=== PATIENT | female | born 1975 | race Caucasian/White ===

== ENCOUNTER 2016-05-06 13:43 | Emergency (ER) | payer MEDICARE ==
[2016-05-06 15:13] VITALS: TEMP 98.5; O2SAT 98
--- NOTE | 2016-05-06 16:26 | RAD ---
EXAM DESCRIPTION: Abdomen Series CLINICAL HISTORY: left abd pain post appendectomy and total hysterectomy. Nausea, vomiting, history of pneumonia COMPARISON: None Available. TECHNIQUE: PA chest with supine and upright views of the abdomen] FINDINGS: The lungs are clear. The heart is normal size. There is an unremarkable bowel gas pattern. There is no mass or calculus. IMPRESSION: Normal acute abdomen series Electronically signed by: Sam Gonzalez MD 05/06/2016 4:25 PM [employer]
[2016-05-06] MEDS ORDERED: LACTATED RINGERS 1,000 ML IVS ONE (16:57)
[2016-05-06] MEDS ORDERED: ONDANSETRON INJ 4 MG/2 ML VIAL IV ONE (17:17)
[2016-05-06] MEDS ORDERED: ONDANSETRON INJ 4 MG/2 ML VIAL ONE (17:19)
--- NOTE | 2016-05-06 18:03 | CT ---
PROCEDURE: Abdomen/Pelvis w/Contrast HISTORY: left abd pain with n/v for 10 days Indication: Same as above Comparison: None . Technique: CT of the abdomen and pelvis was done with intravenous contrast. Images were obtained from the lung base to the level of the pubic symphysis in axial plane, followed by orthogonal sagittal and coronal reconstruction. Oral contrast was not given for the study. The patient was injected with radiographic contrast intravenously, without any documented immediate adverse reactions. FINDINGS: Images through the lung bases do not show any focal infiltrates or pleural effusions. The liver, gallbladder, pancreas, spleen and the bilateral adrenal glands appear unremarkable. The bilateral kidneys enhance with contrast in a normal fashion. The urinary bladder is unremarkable . The bilateral ureters and the bilateral periureteral soft tissues and fat planes are unremarkable. The small bowel appears unremarkable, without any evidence of small bowel obstruction or bowel wall thickening. There is presence of mild constipation. The cecum is low-lying in the right side of the pelvis. There is no visualization of a normal or an inflamed appendix. However there is no pericecal inflammatory change. The ileocecal junction appears unremarkable There is no CT evidence of acute colonic diverticulitis or colitis or large bowel obstruction. The splenic and portal veins are of normal caliber, without any filling defects. There is no pathological lymphadenopathy in the retroperitoneum or in the pelvic region. There is no evidence of free fluid or free air in the abdomen or the pelvic region. There is no clinically significant abdominal aortic aneurysm. There is no clinically significant inguinal or ventral hernia. The visualized lumbar spine is unremarkable . The paravertebral soft tissues are unremarkable. The remainder of the pelvic structures are unremarkable. IMPRESSION: There is presence of mild constipation. The cecum is low-lying in the right side of the pelvis. There is no visualization of a normal or an inflamed appendix. However there is no pericecal inflammatory change. The ileocecal junction appears unremarkable. Location of Interpretation: Teleradiology Electronically signed by: Emre Lira MD 05/06/2016 6:02 PM [employer]
[2016-05-06] MEDS ORDERED: MAGNESIUM HYDROXIDE 30 ML UD PO ONE (18:22)
--- NOTE | 2016-05-06 18:25 | ED.PDOC ---
History of Present Illness - General Chief Complaint: Abdominal Pain Stated Complaint: LLQ abdominal pain Time Seen by Provider: 05/06/16 15:48 Source: patient Exam Limitations: no limitations - History of Present Illness Initial Comments: the patient is a 41-year-old female presenting to the emergency room secondary to abdominal pain primarily on the left. When she points to the side that hurts the worse it is in the left lower quadrant however when I palpate it is a little higher towards the mid left abdomen. No palpable masses. She has had several episodes of vomiting. She has had some issues with constipation. She thinks she may have had some low-grade fevers. No blood in the stool. No syncope or near syncope. Eating food does seem to make the pain worse. Having a bowel movement did seem to help somewhat but then the pain returned. Timing/Duration: 1 week Severity: moderate Improving Factors: nothing Worsening Factors: eating Associated Symptoms: loss of appetite, malaise Allergies/Adverse Reactions: Allergies NO KNOWN ALLERGY Allergy (Verified 05/06/16 15:13) Review of Systems - Review of Systems Constitutional: States: malaise EENTM: States: no symptoms reported Respiratory: States: no symptoms reported Cardiology: States: no symptoms reported Gastrointestinal/Abdominal: States: see HPI Genitourinary: States: no symptoms reported Musculoskeletal: States: back pain Skin: States: no symptoms reported Neurological: States: no symptoms reported Endocrine: States: no symptoms reported All other Systems: No Change from Baseline Past Medical History (General) - Patient Medical History Hx Diabetes: No Hx Gastroesophageal Reflux: Yes Surgical History: appendectomy, Hysterectomy - Vaccination History Hx Influenza Vaccination: No - Social History Hx Tobacco Use: Yes - Female History Patient is a Female of Child Bearing Age (10 -59 yrs old): No Family Medical History - Family History Mother Family History: Unknown Living Status: Unknown Physical Exam - Physical Exam General Appearance: Alert, Comfortable, No apparent distress Eye Exam: bilateral normal Ears, Nose, Throat: normal ENT inspection, normal pharynx Neck: non-tender, full range of motion, supple Respiratory: chest non-tender, lungs clear, normal breath sounds, no respiratory distress, no accessory muscle use Cardiovascular/Chest: normal peripheral pulses, regular rate, rhythm, no edema Peripheral Pulses: radial,right: 2+, radial,left: 2+, dorsalis pedis,right: 2+, dorsalis pedis,left: 2+ Gastrointestinal/Abdominal: soft, other - no palpable masses but she does have some mild voluntary guarding on the left side. Rectal Exam: deferred Back Exam: normal inspection, no CVA tenderness - mild on the left Extremity: normal range of motion, non-tender, normal inspection, no pedal edema , normal capillary refill Neurologic: no motor/sensory deficits, alert, normal mood/affect, oriented x 3 Skin Exam: normal color Comments: Vital Signs - 24 hr 05/06/16 15:08 Temperature 98.5 F Pulse Rate [ 122 H Left Brachial] Respiratory 20 Rate Blood Pressure 143/94 [Left Arm] O2 Sat by Pulse 98 Oximetry Progress - Progress Progress: 05/06/16 18:25 the patient is a 41-year-old female presenting due to left-sided abdominal pain for the last 10 days. Laboratory work was reassuring. CT scan of the abdomen and pelvis showed no acute pathology other than constipation. The patient was given a dose of milk of magnesia here and needs to take one dose of oral [place] oil when she gets home. she also needs to take Pepcid 20 mg daily for the next 2 weeks. She needs to keep well-hydrated. She did have some mild dehydration here and was given a liter of IV fluids. ER warnings were given for any worsening. She needs to follow up with her primary care doctor towards the end of this week or early next week. - Results/Orders Results/Orders: CT scan of the abdomen and pelvis shows mild constipation but no other evidence of acute pathology Laboratory Results - last 24 hr 05/06/16 05/06/16 05/06/16 14:00 15:25 15:49 WBC 9.6 RBC 4.98 Hgb 14.8 Hct 43.8 MCV 88.0 MCH 29.7 MCHC 33.7 RDW 13.9 Plt Count 182 MPV 9.8 Absolute Neuts (auto) 6.50 Absolute Lymphs (auto) 2.50 Absolute Monos (auto) 0.50 Absolute Eos (auto) 0.00 Absolute Basos (auto) 0.10 Neutrophils % 67.6 Lymphocytes % 26.1 Monocytes % 5.5 Eosinophils % 0.3 L Basophils % 0.5 Sodium 140 Potassium 3.7 Chloride 105 Carbon Dioxide 24 Anion Gap 14.7 BUN 18 Creatinine 0.42 L BUN/Creatinine Ratio 42.9 H Random Glucose 87 Serum Osmolality 280.7 Calcium 9.8 Total Bilirubin 0.5 AST 22 ALT 31 Alkaline Phosphatase 62 Creatine Kinase 33 CK-MB (CK-2) 0.7 CK-MB (CK-2) % Not Reportable Troponin I < 0.02 Serum Total Protein 7.9 Albumin 4.9 Globulin 3.0 Albumin/Globulin Ratio 1.6 Amylase 36 Lipase 26 Urine Color Yellow Urine Appearance Clear Urine pH 5.5 Ur Specific [place] 1.025 Urine Protein Negative Urine Glucose (UA) Negative Urine Ketones >=160 Urine Blood Trace-lysed H Urine Nitrite Negative Urine Bilirubin Small H Urine Urobilinogen 0.2 Ur Leukocyte Esterase Negative Urine RBC 0 Urine WBC 0-1 Ur Epithelial Cells 0 Urine Bacteria Rare Urine HCG, Qual Negative Departure - Departure Clinical Impression: Constipation Qualifiers: Constipation type: unspecified constipation type Qualifier Code: (K59.00) Constipation, unspecified Disposition: Discharge to Home or Self Care Condition: Fair Departure Forms: ED Discharge - Pt. Copy, Patient Portal Self Enrollment Instructions: DI for Abdominal Pain-Adult Diet: other - high fiber diet. Increase fluid intake. Activity: increase activity as tolerated Referrals: Camila Fallon NP [Primary Care Provider] - 1-2 Weeks Additional Instructions: the patient is a 41-year-old female presenting due to left-sided abdominal pain for the last 10 days. Laboratory work was reassuring. CT scan of the abdomen and pelvis showed no acute pathology other than constipation. The patient was given a dose of milk of magnesia here and needs to take one dose of oral [place] oil when she gets home. she also needs to take Pepcid 20 mg daily for the next 2 weeks. She needs to keep well-hydrated. She did have some mild dehydration here and was given a liter of IV fluids. ER warnings were given for any worsening. She needs to follow up with her primary care doctor towards the end of this week or early next week.
[2016-05-06 19:09] VITALS: BP 139/89
== END 2016-05-06 19:00 | disposition home or self-care (01) ==
LOC: ER 13:43
DX: K59.00 Constipation, unspecified (principal); K21.9 Gastro-esophageal reflux disease without esophagitis
CPT/HCPCS: 36415; 74020; 74177; 80053; 81001; 81025; 82150; 82550; 82553; 83690; 84484; 85025; J2405; J7120

== ENCOUNTER 2016-12-13 12:57 | Emergency (ER) | payer MEDICARE ==
[2016-12-13 14:27] VITALS: TEMP 98.2
--- NOTE | 2016-12-13 14:49 | ED.PDOC ---
History of Present Illness - General Chief Complaint: Respiratory Problem Stated Complaint: shortness of breath,cough,weakness Time Seen by Provider: 12/13/16 14:22 Source: patient Additional Information: Lalitha Mixon 41 y/o female stated that she had non productive cough for the last 12 weeks and was seen by her primary md was given antibiotic injection and steroid oral but stating not any better continue to cough.No fever nausea or vomiting.Stated several family members sick with same symptoms. - History of Present Illness Timing/Duration: other - 01/07 weeks Cough Quality/Degree: dry cough Possible Cause: no prior episodes Improving Factors: nothing Worsening Factors: nothing Associated Symptoms: cough Allergies/Adverse Reactions: Allergies Codeine Allergy (Verified 12/13/16 14:27) Penicillins Allergy (Verified 12/13/16 14:27) Home Medications: Ambulatory Orders Albuterol Inhaler [Ventolin Hfa Inhaler] 1 puff INH DAILY 05/06/16 Lorazepam [Ativan] 1 mg PO BEDTIME 05/06/16 Pantoprazole Tablet [Protonix] 40 mg PO BID 05/06/16 Benzonatate Perles [Tessalon Perles] 200 mg PO TID #30 cap 12/13/16 Cefuroxime Axetil [Ceftin] 250 mg PO BID #14 tab 12/13/16 Review of Systems - Review of Systems Constitutional: States: no symptoms reported EENTM: States: no symptoms reported Respiratory: States: see HPI Cardiology: States: no symptoms reported Gastrointestinal/Abdominal: States: no symptoms reported Past Medical History (General) - Patient Medical History Hx Asthma: Yes Hx Congestive Heart Failure: No Hx Diabetes: No Hx Gastroesophageal Reflux: Yes Surgical History: appendectomy, Hysterectomy - Vaccination History Hx Influenza Vaccination: No Hx Pneumococcal Vaccination: No - Social History Hx Tobacco Use: Yes - Female History Patient is a Female of Child Bearing Age (10 -59 yrs old): No Family Medical History - Family History Mother Family History: Unknown Living Status: Unknown Hx Family Cancer: Yes - breast -relatives Physical Exam - Physical Exam General Appearance: Alert, No apparent distress Eye Exam: bilateral normal ENT Exam: normal ENT inspection, hearing grossly normal, pharynx normal Neck: non-tender, full range of motion, supple Respiratory: chest non-tender, no respiratory distress, other - coarse breath sounds Cardiovascular/Chest: normal peripheral pulses, regular rate, rhythm Gastrointestinal/Abdominal: non tender, soft Extremity: no pedal edema, no calf tenderness Neurologic: alert, oriented x 3 Progress - Progress Progress: 12/13/16 15:58 Vital Signs - 8 hr 12/13/16 12/13/16 12/13/16 14:23 14:30 15:01 Temperature 98.2 F Pulse Rate 81 Pulse Rate [ 98 H Right Brachial] Respiratory 24 24 18 Rate Blood Pressure 152/87 [Right Arm] O2 Sat by Pulse 94 L 96 Oximetry - Results/Orders Results/Orders: Laboratory Tests 12/13/16 15:06 WBC 13.7 H RBC 4.66 Hgb 13.9 Hct 42.2 MCV 90.6 MCH 29.9 MCHC 33.0 RDW 14.1 Plt Count 220 MPV 8.8 Absolute Neuts (auto) 9.70 H Absolute Lymphs (auto) 3.10 Absolute Monos (auto) 0.70 Absolute Eos (auto) 0.00 Absolute Basos (auto) 0.30 H Neutrophils % 70.4 Lymphocytes % 22.4 Monocytes % 5.1 Eosinophils % 0.1 L Basophils % 2.0 - EKG/XRAY/CT XRAY: chest - no acute abnormalities Departure - Departure Clinical Impression: Acute bronchitis Qualifiers: Bronchitis organism: unspecified organism Qualified Code(s): J20.9 - Acute bronchitis, unspecified Time of Disposition: 16:03 Disposition: Discharge to Home or Self Care Condition: Good Departure Forms: ED Discharge - Pt. Copy, Patient Portal Self Enrollment Instructions: DI for Acute Bronchitis, Acute Bronchitis, Serious Ways to Stop Smoking, All Forms of Smoking Are Bad for You Referrals: Felipe Nicole MD [Primary Care Provider] - 1-2 Weeks Prescriptions: Benzonatate Perles [Tessalon Perles] 200 mg PO TID #30 cap Cefuroxime Axetil [Ceftin] 250 mg PO BID #14 tab Home Medications: Ambulatory Orders Albuterol Inhaler [Ventolin Hfa Inhaler] 1 puff INH DAILY 05/06/16 Lorazepam [Ativan] 1 mg PO BEDTIME 05/06/16 Pantoprazole Tablet [Protonix] 40 mg PO BID 05/06/16 Benzonatate Perles [Tessalon Perles] 200 mg PO TID #30 cap 12/13/16 Cefuroxime Axetil [Ceftin] 250 mg PO BID #14 tab 12/13/16
[2016-12-13] MEDS ORDERED: BENZONATATE PERLES 100 MG CAP PO ONE (14:50)
[2016-12-13] MEDS ORDERED: diphenhydrAMINE HCL 25 MG CAP PO ONE (14:50)
[2016-12-13] MEDS ORDERED: IPRATROPIUM/ALBUTEROL 3 ML VIAL NEB ONE (15:00)
--- NOTE | 2016-12-13 15:24 | RAD ---
Examination: XR CHEST 2 VIEWS dated 12/13/2016 2:49 PM CDT History: cough Comparison: None Technique: Frontal and lateral views of the chest Findings: The lungs are clear bilaterally. No pneumothorax or pleural effusion. The cardiomediastinal silhouette is within normal limits. Impression: No acute disease. Electronically signed by: Nicholas Butt MD 12/13/2016 3:23 PM CDT
[2016-12-13 16:23] VITALS: BP 137/96; O2SAT 94
== END 2016-12-13 16:18 | disposition home or self-care (01) ==
LOC: ER 12:57
DX: J20.9 Acute bronchitis, unspecified (principal); K21.9 Gastro-esophageal reflux disease without esophagitis; Z87.891 Personal history of nicotine dependence; Z88.6 Allergy status to analgesic agent; Z88.0 Allergy status to penicillin
CPT/HCPCS: 36415; 71020; 85025; 94640; J7620; Q0163

== ENCOUNTER → 2016-12-14 | Outpatient (CLI) | payer MEDICARE ==
--- NOTE | 2016-12-14 11:20 | CT ---
EXAM DESCRIPTION: Abdomen/Pelvis w/wo Contrast CLINICAL HISTORY: 41 years,Female,ABDOMINAL PAIN, LLQ COMPARISON: None TECHNIQUE: Multiple axial tomographic images were obtained of the abdomen and pelvis with and without IV contrast and oral contrast. Then reconstructed in sagittal and coronal planes. This exam was performed using radiation doses that are As Low As Reasonably Achievable (ALARA). FINDINGS: The kidneys are unremarkable The adrenal glands are unremarkable. The spleen is unremarkable. The liver demonstrates a small low-density area at the falciform ligament measuring about 1.8 cm. Most likely focal fatty infiltration.. The pancrease is unremarkable. The gallbladder is unremarkable. The included bowel is unremarkable. Moderate stool in the right colon and transverse colon. The appendix not seen present be surgically absent. There is no free air, free fluid, masses, or significant adenopathy. Surrounding soft tissues and bony elements unremarkable. Uterus and ovaries not seen present be surgically absent and or atrophic IMPRESSION: Could be a slight degree constipation otherwise unremarkable CT of the abdomen and pelvis Electronically signed by: Sam Guevara MD 12/14/2016 11:19 AM CDT
== END | disposition home or self-care (01) ==
LOC: CT 07:48
PROVIDERS: ATTEND General Practice
DX: R10.32 Left lower quadrant pain (principal)

== ENCOUNTER 2019-03-22 05:21 | Day surgery (SDC) | payer MEDICARE ==
[2019-03-22] MEDS ORDERED: LACTATED RINGERS 1,000 ML ONE (06:54)
[2019-03-22] MEDS ORDERED: LACTATED RINGERS 1,000 ML IVS ONE (07:55)
[2019-03-22 09:03] VITALS: O2SAT 100
--- NOTE | 2019-03-22 09:25 | OP ---
DATE OF PROCEDURE: 03/22/19 PREOPERATIVE DIAGNOSIS: 1. Hematochezia. 2. Change in bowel habits. POSTOPERATIVE DIAGNOSIS: 1. Internal hemorrhoids. PROCEDURE: 1. Colonoscopy. SURGEON: Mario Alberto Bob MD. COMPLICATIONS: None apparent. BLOOD LOSS: None. MEDICATIONS: Monitored anesthesia care. DESCRIPTION OF PROCEDURE: Informed consent was obtained prior to sedation. The preprocedure cardiopulmonary assessment was satisfactory. The patient was placed in the left lateral decubitus position and was sedated. Perianal exam was unremarkable. A digital rectal exam was unremarkable. The tip of the Olympus colonoscope was inserted in the rectum and guided over to the cecum. The patient's colon is long and tortuous and we did need to apply abdominal pressure in order to get to the cecum. The ileocecal valve was intubated and the terminal ileum is unremarkable. The prep was good. Retroflexed view in the right colon was obtained. The mucosa of the cecum, ascending colon, hepatic flexure, transverse colon, splenic flexure, descending colon and sigmoid colon was examined. Direct and retroflexed views of the rectum were obtained. The patient has internal hemorrhoids. Otherwise, the colonoscopy is unremarkable. There is no other potential bleeding source identified. The procedure was then terminated. FINDINGS: Internal hemorrhoids, otherwise unremarkable colonoscopy including the terminal ileum. RECOMMENDATIONS: The patient has been put on Linzess by her primary care physician, 290 mcg a day. I am fine with her using that. We will followup with her in [place] in about 3 to 4 weeks with Joshua Bernabe and adjustments can be made if necessary. #[id number] cc: Felipe Nicole MD [facility]
[2019-03-22 09:38] VITALS: BP 131/93; TEMP 98.1
[2019-03-22] MEDS ORDERED: LIDOCAINE 1% 10 ML VIAL INJ ONE (10:00)
[2019-03-22] MEDS ORDERED: PROPOFOL 200 MG/20 ML VIAL IV ONE (10:00)
== END 2019-03-22 09:34 | disposition home or self-care (01) ==
LOC: AMB 05:21
PROVIDERS: ATTEND Internal Medicine Gastroenterology
DX: R19.4 Change in bowel habit (principal); K64.8 Other hemorrhoids; K21.9 Gastro-esophageal reflux disease without esophagitis; I10 Essential (primary) hypertension; F41.9 Anxiety disorder, unspecified; G43.909 Migraine, unspecified, not intractable, without status migrainosus; F17.210 Nicotine dependence, cigarettes, uncomplicated; Z88.0 Allergy status to penicillin; Z88.5 Allergy status to narcotic agent; Z88.2 Allergy status to sulfonamides; Z79.899 Other long term (current) drug therapy
CPT/HCPCS: 00811; 45378; J3490; J7120